=== PATIENT | female | born 1980 | race Caucasian/White ===

== ENCOUNTER → 2018-08-02 | Outpatient (CLI) | payer OTHER | LOC: FIMAGING 11:59 | PROVIDERS: ATTEND Obstetrics & Gynecology | DX: O09.522 Supervision of elderly multigravida, second trimester (principal); O09.292 Supervision of pregnancy with other poor reproductive or obstetric history, second trimester; Z3A.19 19 weeks gestation of pregnancy ==

== ENCOUNTER 2018-10-17 20:46 | Observation (INO) | payer OTHER ==
[2018-10-17 21:12] LABS: PLATELET COUNT 238 10^3/uL (150-400)
--- NOTE | 2018-10-17 21:56 | EDPHY ---
H & P Stated Complaint: syncope episode, fall, lip laceration, 30 weeks Time Seen by Provider: 10/17/18 21:05 HPI/ROS: CHIEF COMPLAINT: Fainted HISTORY OF PRESENT ILLNESS: This is a 38-year-old female, , 30 weeks with due date December 21, who had a syncopal episode while sitting on the toilet to have a bowel movement. She felt lightheaded earlier in the day and had not eaten much. This evening while on the toilet she began to feel poorly started to stand up and reach forward to open the door for help and apparently pitched forward, striking her face. She does not think that she struck her abdomen. She has been feeling the baby move since this occurred. She has a history of recurrent syncope and fainted early on during a previous . Her complaints at the time of her emergency department presentation are of a lower lip laceration and chipped front tooth. She does not have headache, visual changes, neck pain, back pain, chest pain, shortness of breath , or abdominal pain. She is not having any vaginal bleeding and no fluid leaking. Her 1st went well and she had a normal spontaneous vaginal delivery in July of 2015. REVIEW OF SYSTEMS: A ten system review of systems was performed and is negative with the exception of the items mentioned in the HPI. Past medical history: Syncope Social history: She lives with her and their young daughter. She does not use tobacco or alcohol. General Appearance: Alert. Vital signs reviewed and normal. Head: Normocephalic. Eyes: Pupils equal and round, no conjunctival injection, no discharge. Anicteric. ENT, Mouth: Tooth 8 is chipped along the lower medial aspect. No loose teeth. No trismus. No intraoral injuries identified aside from lower lip midline laceration. There is an abrasion on the mid chin. No facial bone tenderness or deformity, specifically no maxillary or mandibular tenderness. No blood in the nares. Neck: Nontender to palpation over the cervical spine in the midline. Respiratory: Lungs are clear to auscultation; no wheezes, rales, or rhonchi. Cardiovascular: Regular rate and rhythm; no murmur, rub, or gallop. Gastrointestinal: Abdomen is gravid. Skin: Warm and dry, no rashes on exposed skin, normal color. Back: Nontender to palpation over the thoracolumbar spine. No CVAT. Extremities: No lower extremity edema, no calf tenderness or swelling. Neurological: Alert and oriented. Moving all four extremities easily and equally. Cranial nerves II through XII are examined and are intact (visual acuity not tested). Strength is 5 over 5 bilaterally with testing of all major motor groups. Sensation is intact to light touch over all 4 extremities. Psychiatric: Normal affect. - Personal History Current Tetanus/Diphtheria Vaccine: Yes Tetanus Vaccine Date: 05/31/2015 - Medical/Surgical History Hx Asthma: No Hx Chronic Respiratory Disease: No Hx Diabetes: No Hx Cardiac Disease: No Hx Renal Disease: No Hx Cirrhosis: No Hx Alcoholism: No Hx HIV/AIDS: No Hx Splenectomy or Spleen Trauma: No Other PMH: syncope, remote history of kidney issues, frequent UTIs - Social History Smoking Status: Never smoked Constitutional: Initial Vital Signs Temperature (C) 36.7 C 10/17/18 20:54 Heart Rate 91 10/17/18 20:54 Respiratory Rate 20 10/17/18 20:54 Blood Pressure 108/79 10/17/18 20:54 O2 Sat (%) 99 10/17/18 20:54 O2 Delivery Mode Room Air Allergies/Adverse Reactions: Sulfa (Sulfonamide Antibiotics) Allergy (Verified 01/21/15 16:02) simmons peppers Allergy (Uncoded 01/21/15 16:02) Home Medications: Medication Instructions Recorded Ascorbic Acid [Vitamin C] 1,000 mg PO DAILY 08/14/15 Cranberry Conc/C/Bacill Coag 1 each PO DAILY 08/14/15 [CRANBERRY TABLET] Docusate Sodium [Colace 100 MG (*)] 100 mg PO BID 08/14/15 Vit27&Calcium/Iron/FA 1 each PO DAILY 08/14/15 [] Psyllium Husk [Daily Fiber] 0.52 gm PO DAILY 08/14/15 Ibuprofen [Motrin (*)] 600 mg PO Q6 PRN #60 tab 08/17/15 Medical Decision Making - Diagnostics EKG Interpretation: 12 lead EKG is interpreted in [place] by emergency department physician. Procedures: Bedside ultrasound performed by me to assess activity and heart tones. heart tones in the 140s. Procedure: Laceration repair. Verbal consent was obtained from the patient. The 3/4 cm laceration on the lower lip was anesthetized in the usual fashion. The wound was irrigated, draped and explored to its base. There were no deep structures involved. The wound was repaired with 5-0 vicryl, five simple interrupted stitches with knots buried. The wound repair was single layer . The procedure was performed by SOPHIA Castano. ED Course/Re-evaluation: 38-year-old female status post syncopal episode with facial injury. Lip laceration repaired by SOPHIA Castano. Quick bedside ultrasound performed by me. I note active movement and normal heart tones around 140. I do not a placenta previa. EKG reviewed by me. There is some baseline artifact. She Has a normal sinus rhythm with a rate of 86. CBC and chemistries reviewed. She is medically cleared from the standpoint of syncope/trauma and is referred to Labor and delivery for monitoring. She is discharge from the emergency department in taken by wheelchair to labor and delivery. Differential Diagnosis: Syncope including but not limited to vasovagal syncope, arrhythmia, dehydration , and blood loss. - Data Points Laboratory Results: Laboratory Results 10/17/18 20:50 10/17/18 20:50 Medications Given: Discontinued Medications Calcium Carbonate (Tums) 500 - 1,000 mg PO TID PRN PRN Reason: Indigestion Stop: 04/16/19 02:08 Last Admin: 10/18/18 02:26 Dose: 1,000 mg Departure - Departure Disposition: Home, Routine, Self-Care Clinical Impression: Syncope, Lip laceration, Chipped tooth Condition: Good
[2018-10-17 22:07] VITALS: BP 109/65
--- NOTE | 2018-10-18 00:24 | GHP ---
[f rep st] HISTORY AND PHYSICAL DATE OF ADMISSION: 10/17/2018 ADMITTING DIAGNOSIS: Intrauterine at 30-0/7 weeks' gestation, status post syncopal episode and fall. HISTORY OF PRESENT ILLNESS: The patient is a 38-year-old 2, para 1-0-0-1, with an EDC of 07/2018, based on last menstrual period and a 7-week ultrasound. She has had care at [facility] with Dr. Sreedhar Olivera, and she had a syncopal episode on the evening of the . Patient reports using the restroom to have a bowel movement, and she tried to Valsalva. She felt lightheaded and dizzy, put her hand on the door to call for assistance from her , and awoke as her face impacted the bathroom floor. She is not sure she had direct abdominal trauma, but most of her trauma appears to be on her face and head and not near her abdomen. She was initially seen in e emergency department of [facility]. She had lip lacerations and a chipped tooth. Her lip laceration was repaired and her head was cleared by the emergency department, and she was sen t to Labor and delivery for evaluation of her baby. She has not had significant cramping or pain. N o vaginal bleeding and is feeling good movement. Also, no leakage of fluid. Prior to this epi sode, patient said she had a busy day. [place] were at the mall, and she took a long time to eat, was h ungry, felt like she needed food, but had eaten and had just finished dinner when this episode occurr ed. She has had syncopal episodes prior in her life, most markedly with her last , but neve r a trauma this significant. She also is known to have hypotension, especially in . The pa kathy's only significant risk factors are advanced maternal age and she had syncopal episode s with her last . She has no significant past medical history. She had frequent UTIs and w as worked up for nephrolithiasis, but was negative and no significant past surgical history. OBSTETRICAL HISTORY: She is a G2, P1. She had 1 full-term normal spontaneous vaginal delivery in [facility] of 2015 without complications. ALLERGIES: Sulfa and simmons peppers. MEDICATIONS: Include vitamin C, cranberry pills, Colace, vitamins with DHEA, and psyllium h usk. SOCIAL HISTORY: She is . She lives with her and her daughter. Denies tobacco, alcoh ol, and drug use. FAMILY HISTORY: Noncontributory. PHYSICAL EXAMINATION: She is afebrile. Vital signs are stable. Temperature is 36.7. Blood pressur e is 109/65. Pulse is 79. Respiratory rate is 18. She is 98% on room air. Currently, heart tones are in the 140s, reactive, moderate variability, category 1, appropriate for gestational age. Baby did have deceleration to the 80s to 90s for 3 minutes that was spontaneous, and she initially shoemaker d some contractions. They are down to minimal currently. Cervix is closed and firm, and fibro nectin was performed. LABORATORY DATA: CBC: White count is 16.2, hemoglobin 13.3, hematocrit 39.2, platelets 238. Chemis tries are normal and fibronectin and KB are pending. IMAGING DATA: Bedside ultrasound performed. Baby is cephalic. Normal movement. Posterior pl acenta that appears intact and MVP of 4.58 with multiple large fluid pockets. ASSESSMENT/PLAN: 38-year-old 2, para 1-0-0-1 at 30 weeks after a syncopal episode for monitoring. We are awaiting results of the fibronectin and a KB. Overall, status and ma ternal status are reassuring. Because of the deceleration and the unknown nature of her trauma to he r abdomen, I feel that we should keep her for prolonged monitoring, at least overnight, to monitor fo r status, as well as any signs or symptoms of placental abruption. Patient and are in agreement. /[id number]/MODL
[2018-10-18] MEDS ORDERED: CALCIUM CARBONATE 500 MG CHEWABLE TAB PO PRN (02:09)
--- NOTE | 2018-10-18 07:09 | OBPROG ---
Labor Progress Note Assessment/Plan: Assessment: 38 y/o @ 30 weeks admitted for observation and extended monitoring after syncopal episode Plan: KB and FFN negative. Overall FM reassuring and pt without complaints. Will d/ c home this am to follow-up with Dr. Chu this week. 10/18/18 07:07 Subjective/Intrapartum Course: 10/18/18 07:05 Pt rested overnight. She denies cramping, ctx, VB, LOF or other complaints. She feels good FM. Objective: Temp Pulse Resp BP Pulse Ox 36.7 C 82 18 109/65 98 10/17/18 20:54 10/17/18 22:00 10/17/18 22:00 10/17/18 22:00 10/17/18 22:00 - SVE Dilation (cm): 0 Effacement (%): Less than 50 Station: -2 Membranes: Intact - Contraction Pattern Assessment Current Contraction Pattern: Other (Specify) (none) - FHR Assessment Silver FHR (bpm): 130 FHR Pattern Variability: Moderate FHR Category: 1 - AP Antepartum Course: 10/18/18 07:06 Pt of [facility] 30 weeks syncopal episode, and facial trauma Oxytocin Orders Assessment - Pre-Induction/Augmentation Assessment Gestational Age: 30 week(s) and 6 day(s) ICD10 Worksheet Patient Problems: Problems Problem Status Onset Chipped tooth Acute Lip laceration Acute Syncope Acute Active labor at term Acute
== END 2018-10-18 09:30 | disposition home or self-care (01) ==
LOC: FLD 22:19
PROVIDERS: ADMIT Obstetrics & Gynecology; ATTEND Obstetrics & Gynecology
PROC: 0CQ1XZZ Repair Lower Lip, External Approach (ICD-10-PCS; principal; 2018-10-17)
DX: O99.89 Other specified diseases and conditions complicating pregnancy, childbirth and the puerperium (principal); R55 Syncope and collapse; S01.511A Laceration without foreign body of lip, initial encounter; S02.5XXA Fracture of tooth (traumatic), initial encounter for closed fracture; W01.198A Fall on same level from slipping, tripping and stumbling with subsequent striking against other object, initial encounter; Y92.012 Bathroom of single-family (private) house as the place of occurrence of the external cause; Y93.E8 Activity, other personal hygiene; Y99.8 Other external cause status; O09.513 Supervision of elderly primigravida, third trimester; Z3A.30 30 weeks gestation of pregnancy
CPT/HCPCS: 12011; 59025; G0378